=== PATIENT | female | born 1990 | race Caucasian/White ===

== ENCOUNTER 2019-04-22 13:27 | Emergency (ER) | payer BC ==
[2019-04-22] MEDS ORDERED: NS 0.9% 1000 ML** 1,000 ML IV ONE ×2 (13:57→14:36)
--- NOTE | 2019-04-22 14:03 | ED ---
- HPI Summary HPI Summary: The patient is a 28 y/o female presenting to [facility] with a chief complaint of nausea, vomiting, and abdominal pain for the last two days. She reports that she is currently 18 weeks and has been experiencing nausea, vomiting, mild diarrhea, decreased oral intake with inability to hold liquids or solids, diffuse sharp and cramping abdominal pain, low-grade fevers, chills, and dizziness for the last two days. She denies any cough, CP, or SOB. Symptoms currently rated /10 in severity. She did get her flu vaccination this year. She notes that her first child is at home sick with a GI bug. [employer] is [facility]. She did not have complications with her first , but she has experienced [place] contractions with this . . PMHx: hypotension, B12 deficiency. Nonsmoker, no EtOH, no substance use. Medications reviewed. Allergies noted. - History of Current Complaint Chief Complaint: EDNauseaVomitDiarrh Stated Complaint: 18 WEEKS PREG UNABLE TO KEEP ANY THIS DOWN Time Seen by Provider: 04/22/19 13:57 Hx Obtained From: Patient Chief Complaint: Other: - abdominal pain with other symptoms Onset/Duration: Started Days Ago - two, Still Present Timing: Constant Severity: Moderate Current Severity: Moderate Pain Intensity: 4 Location of Pain: Diffuse Character: Cramping, Sharp Aggravating Factors: Nothing Alleviating Factors: Nothing Associated Signs and Symptoms: Positive: Fever, Nausea, Vomiting, Other: - diarrhea, decreased oral intake, abdominal pain, chills, dizziness; Negative: cough, CP, SOB - Allergies/Home Medications Allergies/Adverse Reactions: Allergies Allergy/AdvReac Type Severity Reaction Status Date / Time No Known Allergies Allergy Verified 04/22/19 14:51 PMH/Surg Hx/FS Hx/Imm Hx Endocrine/Hematology History: Reports: Other Endocrine/Hematological Disorders - b12 deficiency Cardiovascular History: Reports: Hx Hypotension - Surgical History Surgical History: None Surgery Procedure, Year, and Place: none Infectious Disease History: No Infectious Disease History: Denies: Traveled Outside the [place] in Last 30 Days - Family History Known Family History: Positive: Diabetes Review of Systems Positive: Fever - low-grade, Chills Negative: Chest Pain Negative: Shortness Of Breath, Cough Positive: Abdominal Pain - diffuse cramping and sharpness, Vomiting, Diarrhea, Nausea, Other - decreased oral intake Neurological: Other - dizziness All Other Systems Reviewed And Are Negative: Yes Physical Exam - Summary Physical Exam Summary: Constitutional: Well-developed, Well-nourished, Alert. (-) Distressed Skin: Warm, Dry HENT: Normocephalic; Atraumatic Eyes: Conjunctiva normal Neck: Musculoskeletal ROM normal neck. (-) JVD, (-) Stridor, (-) Nuchal rigidity Cardio: Rhythm regular, rate normal, Heart sounds normal; Intact distal pulses; Radial pulses are 2+ and symmetric. (-) Murmur Pulmonary/Chest wall: Effort normal. (-) Respiratory distress, (-) Wheezes, (-) Rales Abd: Soft, (-) tenderness, (-) Distension, (-) Guarding, (-) Rebound Musculoskeletal: (-) Edema Lymph: (-) Cervical adenopathy Neuro: Alert, Oriented x3 Psych: Mood and affect Normal - Physical Exam Triage Information Reviewed: Yes Vital Signs Reviewed: Yes Procedures - Sedation Patient Received Moderate/Deep Sedation with Procedure: No - Ultrasound Doppler Ultrasound: normal - HR of 151 BPM Diagnostics - Vital Signs Vital Signs Temp Pulse Resp BP Pulse Ox 04/22/19 13:29 97.1 F 94 16 103/57 99 - Laboratory Result Diagrams: 04/22/19 14:15 04/22/19 14:15 Lab Statement: Any lab studies that have been ordered have been reviewed, and results considered in the medical decision making process. Re-Evaluation - Re-Evaluation First Eval Re-Evaluation Time: 15:35 Change: Improved Comment: patient feeling better Second Eval Re-Evaluation Time: 16:35 Comment: tolerated PO, discussed results and plan for discharge Course/Dx - Course Course Of Treatment: 28 y/o F at 18 weeks p/w n/v/d. - VSS NAD. Abd soft, reports mild cramping. - labs w/o leukocytosis. Repleted K. Bedside ultrasound with cardiac activity. - given IV fluids, tolerating by mouth. Urine with 1+ leukesterase, we'll treat for bacteria in . - Zofran when necessary at home - Diagnoses Provider Diagnoses: Nausea vomiting and diarrhea, Asymptomatic bacteriuria during Discharge ED - Sign-Out/Discharge Documenting (check all that apply): Patient Departure - Patient will be discharged home. - Discharge Plan Condition: Improved Disposition: HOME Prescriptions: Cephalexin CAP* [Keflex CAP*] 500 mg PO BID 5 Days #10 cap Ondansetron ODT TAB* [Zofran 4 MG Odt TAB*] 4 mg PO Q8H PRN 4 Days #12 tab.odt PRN Reason: Nausea/Vomiting Patient Education Materials: Nausea and Vomiting in (ED), Dehydration (ED) Referrals: Esthela Coy ADMINISTRATIVE AND PROGRAM SPECIALIST [Primary Care Provider] - 3 Days Additional Instructions: You were seen in the emergency department for nausea vomiting and diarrhea. Your labs showed trace bacteria in your urine, because you're you should take an antibiotic. Please take Keflex twice a day for 5 days. If any studies were not completed at the time of discharge you will be called with the relevant results. Please follow up with your primary care doctor in the next 2-3 days and return to the emergency department for inability to eat or drink, fevers, worsening or concerning symptoms. It was a pleasure taking care of you today. - Billing Disposition and Condition Condition: IMPROVED Disposition: Home - Attestation Statements Document Initiated by Orly: Yes Documenting Scribe: Rocio Terry Provider For Whom Orly is Documenting (Include Credential): Dr. Lena Holguin MD Scribe Attestation: Rocio Spann scribed for Dr. Lena Holguin MD on 04/22/19 at 2146. Scribe Documentation Reviewed: Yes Provider Attestation: The documentation as recorded by the Rocio guthrie accurately reflects the service I personally performed and the decisions made by me, Dr. Lena Holguin MD Status of Scrtoi Document: Viewed
[2019-04-22 14:22] LABS: ABS Monocytes 0.7 10^3/ul (0-0.8); ABS Neutrophils 4.4 10^3/ul (1.5-7.7); Eosinophil % 0.4 %; Hematocrit 35 % (35-47); Hemoglobin 12.6 g/dL (12.0-16.0); Mean Corpuscular HGB Conc 36 g/dL (31-36); Mean Corpuscular Hemoglobin 33 pg (27-31); Mean Corpuscular Volume 92 fL (80-97); Mean Platelet Volume 8.4 fL (7.4-10.4); Nucleated Red Blood Cells % 0.1; Platelet Count 154 10^3/uL (150-450); Red Blood Count 3.79 10^6 /uL (3.70-4.87); Red Cell Distribution Width 13 % (10-15); White Blood Count 6.2 10^3/uL (3.5-10.8)
[2019-04-22 15:28] LABS: ALT 47 U/L (7-52); AST 26 U/L (13-39); Albumin 3.5 g/dL (3.2-5.2); Albumin/Globulin Ratio 1.4 (1-3); Alkaline Phosphatase 45 U/L (34-104); Anion Gap 6 mmol/L (2-11); BUN/Creatinine Ratio 11.9 (8-20); Blood Urea Nitrogen 5 mg/dL (6-24); CO2 Carbon Dioxide 24 mmol/L (22-32); Calcium 8.3 mg/dL (8.6-10.3); Chloride 104 mmol/L (101-111); EGFR African American 215.8 (>60); EGFR Non-African American 178.4 (>60); Globulin 2.5 g/dL (2-4); Glucose 91 mg/dL (70-100); Potassium 3.4 mmol/L (3.5-5.0); Sodium 134 mmol/L (135-145)
[2019-04-22 16:26] LABS: Urine Appearance Cloudy; Urine Bilirubin Negative (Negative); Urine Blood 1+ (Negative); Urine Color Yellow; Urine Glucose Negative (Negative); Urine Ketones 1+ (Negative); Urine Nitrite Negative (Negative); Urine Protein Negative (Negative); Urine Specific Gravity 1.006 (1.010-1.030); Urine Urobilinogen Negative (Negative)
[2019-04-22 16:33] LABS: Urine Bacteria 1+ (Absent); Urine Red Blood Cell Trace(0-2/hpf) (Absent); Urine Squamous Epithelial Cell Present (Absent); Urine White Blood Cell Trace(0-5/hpf) (Absent)
[2019-04-22] MEDS ORDERED: Cephalexin CAP* 500 MG PO ONE (16:35)
[2019-04-22] MEDS ORDERED: Potassium Chlor TAB* 20 MEQ TAB.ER PO ONE (16:38)
[2019-04-22 17:07] VITALS: BP 107/66
== END 2019-04-22 17:07 | disposition home or self-care (01) ==
LOC: ED 13:27
DX: O21.0 Mild hyperemesis gravidarum (principal); R19.7 Diarrhea, unspecified; R82.71 Bacteriuria; R50.9 Fever, unspecified; R42 Dizziness and giddiness; Z3A.18 18 weeks gestation of pregnancy
CPT/HCPCS: 36415; 80053; 81003; 81015; 83690; 85025; 87077; 87086; 96360; 96361; 99285; A9270-GY

== ENCOUNTER 2019-09-24 10:40 | Inpatient (IN) ==
[2019-09-24] MEDS ORDERED: Lactated Ringers 1000 ml BAG 1,000 ML IV ONE ×2 (11:15→14:17)
[2019-09-24] MEDS ORDERED: Lactated Ringers 1000 ml BAG 1,000 ML IV SCH ×3 (12:00→18:00)
[2019-09-24 12:02] LABS: ABS Eosinophils 0.1 10^3/ul (0-0.6); ABS Lymphocytes 2.3 10^3/ul (1.0-4.8); ABS Monocytes 0.8 10^3/ul (0-0.8); Eosinophil % 0.7 %; Hematocrit 39 % (35-47); Hemoglobin 13.5 g/dL (12.0-16.0); Lymphocyte % 23.8 %; Mean Corpuscular HGB Conc 35 g/dL (31-36); Mean Corpuscular Hemoglobin 33 pg (27-31); Mean Corpuscular Volume 95 fL (80-97); Mean Platelet Volume 8.7 fL (7.4-10.4); Nucleated Red Blood Cells % 0.2; Platelet Count 213 10^3/uL (150-450); Red Cell Distribution Width 14 % (10-15); White Blood Count 9.5 10^3/uL (3.5-10.8)
[2019-09-24 13:04] LABS: Urine Benzodiazepine Screen None Detected (None Detect); Urine Opiates Screen None Detected (None Detect)
[2019-09-24] MEDS ORDERED: OBEPIDURAL 250 ML EPIDURAL ONE (13:09)
[2019-09-24] MEDS ORDERED: Lidocaine 1% VIAL 10 MG/ML VIAL ONE ×2 (13:40→21:14)
[2019-09-24] MEDS ORDERED: fentaNYL 100 mcg/2 ml 50 MCG/ML VIAL ONE (13:57)
[2019-09-24] MEDS ORDERED: Phenylephrine 40 mcg/mL 10mL (400mcg) SYRINGE IV PUSH PRN ×2 (14:17)
[2019-09-24] MEDS ORDERED: Sodium Citrate/Citric Acid LIQ 15 ML UDC PO PRN (14:17)
[2019-09-24] MEDS ORDERED: OBEPIDURAL 250 ML EPIDURAL SCH (15:00)
[2019-09-24] MEDS ORDERED: Oxytocin in LR 20 UNITS/1,000 ML BAG IVPB ONE (16:07)
[2019-09-24] MEDS ORDERED: Witch Hazel PAD JAR TOPICAL PRN (17:10)
[2019-09-24] MEDS ORDERED: Glycerin ADULT 2.4 gm SUPP PR PRN (17:10)
[2019-09-24] MEDS ORDERED: Oxytocin in LR 20 UNITS/1,000 ML BAG IVPB SCH (18:00)
[2019-09-24] MEDS: Dibucaine 1% OINT 28.35 GM TUBE PR PRN (19:45)
[2019-09-25 06:09] LABS: ABS Eosinophils 0.1 10^3/ul (0-0.6); ABS Lymphocytes 2.1 10^3/ul (1.0-4.8); Eosinophil % 0.5 %; Hematocrit 31 % (35-47); Hemoglobin 10.9 g/dL (12.0-16.0); Lymphocyte % 19.7 %; Mean Corpuscular HGB Conc 35 g/dL (31-36); Mean Corpuscular Hemoglobin 33 pg (27-31); Mean Corpuscular Volume 95 fL (80-97); Mean Platelet Volume 8.5 fL (7.4-10.4); Nucleated Red Blood Cells % 0.1; Platelet Count 192 10^3/uL (150-450); Red Cell Distribution Width 14 % (10-15); White Blood Count 10.7 10^3/uL (3.5-10.8)
[2019-09-25] MEDS: Dibucaine 1% OINT 28.35 GM TUBE PR PRN (11:51)
[2019-09-26 07:27] VITALS: BP 135/75
== END 2019-09-26 14:18 | disposition home or self-care (01) | DRG 560 ==
LOC: MCHOBOUT 10:40 → MCHOB 11:12
PROVIDERS: ADMIT Advanced Practice Midwife; ATTEND Advanced Practice Midwife